=== PATIENT | female | born 1995 | race Caucasian/White ===

== ENCOUNTER 2018-06-03 10:20 | Emergency (ER) | payer MEDICAID ==
--- NOTE | 2018-06-03 11:02 | EDM.PDOC ---
ED HPI GENERAL MEDICAL PROBLEM - General Chief Complaint: ENT Problem Stated Complaint: POSSIBLE STREP Time Seen by Provider: 06/03/18 10:57 Source of Information: Reports: Patient History Limitations: Reports: No Limitations - History of Present Illness INITIAL COMMENTS - FREE TEXT/NARRATIVE: pt has a sore throat. She had a positive strept at [facility] and at [facility] and now she has a sore throat again,. She still has her tonsils. Onset: Other ( started last nite. 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 Exam Limited By: No Limitations General Appearance: Alert, Anxious, Mild Distress Eye Exam: Right Eye: Papilledema Ears: Normal TMs Nose: Normal Inspection Mouth/Throat: Throat Pain, Throat Swelling, Tongue Swelling Head: Atraumatic Neck: Normal Inspection, Lymphadenopathy (R), Lymphadenopathy (L) Respiratory/Chest: No Respiratory Distress Cardiovascular: Regular Rate, Rhythm GI/Abdominal: Soft, Non-Tender Course - Vital Signs Last Recorded V/S: Last Vital Signs Temp 36.5 C 06/03/18 10:43 Pulse 114 H 06/03/18 10:43 Resp 14 06/03/18 10:43 BP 126/80 06/03/18 10:43 Pulse Ox 97 06/03/18 10:43 - Re-Assessments/Exams Free Text/Narrative Re-Assessment/Exam: 06/03/18 11:17 pt has a positive strept Departure - Departure Time of Disposition: 11:18 Disposition: Home, Self-Care 01 Condition: Fair Clinical Impression: Strep pharyngitis - Discharge Information Referrals: Koki Hammond PA [Primary Care Provider] - Forms: ED Department Discharge Care Plan Goals: push fluids, tylenol and motrin for fever and body aches, amoxicillin 500mg tid for 10 days, Ent referal 3 positive strepts in 4 mon.
== END 2018-06-03 11:29 | disposition home or self-care (01) ==
LOC: JP.ED 10:20
DX: J02.0 Streptococcal pharyngitis (principal); Z88.8 Allergy status to other drugs, medicaments and biological substances
CPT/HCPCS: 87430; 99283

== ENCOUNTER 2019-04-11 19:38 | Emergency (ER) | payer MEDICAID ==
--- NOTE | 2019-04-11 21:10 | EDM.PDOC ---
ED HPI GENERAL MEDICAL PROBLEM - General Chief Complaint: Gastrointestinal Problem Stated Complaint: LOWER ABD PAIN Time Seen by Provider: 04/11/19 20:30 Source of Information: Reports: Patient, Family History Limitations: Reports: No Limitations - History of Present Illness INITIAL COMMENTS - FREE TEXT/NARRATIVE: 23-year-old female concerned about worsening constipation and rectal pressure over the past 2 to 3 days. She has tried suppositories, mag citrate and just feels like she cannot have a BM. She is having perirectal and lower pelvic pain when attempting to have a bowel movement. No fevers or chills, no nausea or vomiting. She is only complaining of pain while she is attempting a bowel movement. Onset: Gradual Duration: Day(s): (2 to 3 days) Location: Reports: Abdomen (Lower abdomen, pelvis) Worsens with: Reports: Other (Attempting a bowel movement) Associated Symptoms: Reports: Other (Mild nausea, no other symptoms) Treatments CLINICAL NURSE SPECIALIST: Reports: Other Medication(s) Other Treatments CLINICAL NURSE SPECIALIST: laxatives, suppositories, mag citrate Lower Abdomen Pain Score (Numeric/FACES): 8 - Related Data Allergies Allergy/AdvReac Type Severity Reaction Status Date / Time cefixime [From Suprax] Allergy Rash Verified 04/02/14 07:39 Home Meds: Home Meds Sertraline HCl 50 mg PO DAILY 10/14/17 [History] Norgestimate-Ethinyl Estradiol [Sprintec 28 Day Tablet] 1 tab PO DAILY 04/11/19 [History] Past Medical History HEENT History: Reports: Impaired Vision Gastrointestinal History: Reports: Chronic Constipation COMMIS CHEF History: Reports: Musculoskeletal History: Reports: Fracture Other Musculoskeletal History: R femur fx, right hand fx, right toe fx. Psychiatric History: Reports: Anxiety, Depression Hematologic History: Reports: Anemia Dermatologic History: Reports: Eczema - Past Surgical History Female Surgical History: Reports: LEEP Social & Family History - Tobacco Use Smoking Status *Q: Current Every Day Smoker Years of Tobacco use: 10 Packs/Tins Daily: 0.2 - Caffeine Use Caffeine Use: Reports: Coffee, Soda Caffeine Use Comment: daily coffee, occasional soda - Alcohol Use Days Per Week of Alcohol Use: 7 Number of Drinks Per Day: 3 Total Drinks Per Week: 21 - Recreational Drug Use Recreational Drug Use: No ED ROS GENERAL - Review of Systems Review Of Systems: See Below Constitutional: Denies: Fever, Chills HEENT: Reports: No Symptoms Respiratory: Denies: Shortness of Breath Cardiovascular: Denies: Chest Pain GI/Abdominal: Reports: Abdominal Pain, Constipation, Nausea. Denies: Diarrhea, Vomiting : Reports: No Symptoms Skin: Reports: No Symptoms Neurological: Reports: No Symptoms ED EXAM, GI/ABD - Physical Exam Exam: See Below Exam Limited By: No Limitations General Appearance: Alert, No Apparent Distress Eyes: Bilateral: Normal Appearance (No jaundice) Respiratory/Chest: No Respiratory Distress GI/Abdominal Exam: Soft, Tender (She does react with tenderness to palpation in the right lower quadrant and suprapubic area) Rectal (Female) Exam: Tenderness (Patient is very sensitive to a digital exam, there is significant pain especially with an attempted de-compaction. Stool is firm but high) Neurological: Alert, Oriented Psychiatric: Normal Affect, Normal Mood Skin Exam: Warm, Dry Course - Vital Signs Last Recorded V/S: Last Vital Signs Temp 98.5 F 04/11/19 20:04 Pulse 85 04/11/19 20:04 Resp 16 04/11/19 20:04 BP 131/61 04/11/19 20:04 Pulse Ox 95 04/11/19 20:04 - Orders/Labs/Meds Labs: Laboratory Tests 04/11/19 04/11/19 04/11/19 Range/Units 21:57 22:00 22:56 WBC 9.7 (4.5-11.0) K/uL RBC 4.59 (3.30-5.50) M/uL Hgb 13.8 (12.0-15.0) g/dL Hct 40.4 (36.0-48.0) % MCV 88 (80-98) fL MCH 30 (27-31) pg MCHC 34 (32-36) % Plt Count 229 (150-400) K/uL Neut % (Auto) 73 H (36-66) % Lymph % (Auto) 21 L (24-44) % [place] % (Auto) 5 (2-6) % Eos % (Auto) 1 L (2-4) % Baso % (Auto) 0 (0-1) % Sodium 138 L (140-148) mmol/L Potassium 3.4 L (3.6-5.2) mmol/L Chloride 103 (100-108) mmol/L Carbon Dioxide 25 (21-32) mmol/L Anion Gap 13.4 (5.0-14.0) mmol/L BUN 7 (7-18) mg/dL Creatinine 0.6 (0.6-1.0) mg/dL Est Cr Clr Drug Dosing 118.57 mL/min Estimated GFR (MDRD) > 60 (>60) Glucose 99 (74-106) mg/dL Calcium 8.8 (8.5-10.1) mg/dL Total Bilirubin 0.4 (0.2-1.0) mg/dL AST 13 L (15-37) U/L ALT 22 (12-78) U/L Alkaline Phosphatase 60 (46-116) U/L Total Protein 7.5 (6.4-8.2) g/dL Albumin 4.1 (3.4-5.0) g/dL Globulin 3.4 (2.3-3.5) g/dL Albumin/Globulin Ratio 1.2 (1.2-2.2) Urine Color Yellow (YELLOW) Urine Appearance Cloudy A (CLEAR) Urine pH 7.5 (5.0-8.0) Ur Specific [place] 1.020 (1.008-1.030) Urine Protein Negative (NEGATIVE) mg/dL Urine Glucose (UA) Negative (NEGATIVE) mg/dL Urine Ketones 15 H (NEGATIVE) mg/dL Urine Occult Blood Negative (NEGATIVE) Urine Nitrite Negative (NEGATIVE) Urine Bilirubin Negative (NEGATIVE) Urine Urobilinogen 0.2 (0.2-1.0) EU/dL Ur Leukocyte Esterase Negative (NEGATIVE) Urine RBC 0-5 (0-5) Urine WBC 0-5 (0-5) Ur Epithelial Cells Rare Amorphous Sediment Moderate Urine Bacteria Few Urine Mucus Not seen Urine HCG, Qual 04/11/19 Range/Units 22:56 WBC (4.5-11.0) K/uL RBC (3.30-5.50) M/uL Hgb (12.0-15.0) g/dL Hct (36.0-48.0) % MCV (80-98) fL MCH (27-31) pg MCHC (32-36) % Plt Count (150-400) K/uL Neut % (Auto) (36-66) % Lymph % (Auto) (24-44) % [place] % (Auto) (2-6) % Eos % (Auto) (2-4) % Baso % (Auto) (0-1) % Sodium (140-148) mmol/L Potassium (3.6-5.2) mmol/L Chloride (100-108) mmol/L Carbon Dioxide (21-32) mmol/L Anion Gap (5.0-14.0) mmol/L BUN (7-18) mg/dL Creatinine (0.6-1.0) mg/dL Est Cr Clr Drug Dosing mL/min Estimated GFR (MDRD) (>60) Glucose (74-106) mg/dL Calcium (8.5-10.1) mg/dL Total Bilirubin (0.2-1.0) mg/dL AST (15-37) U/L ALT (12-78) U/L Alkaline Phosphatase (46-116) U/L Total Protein (6.4-8.2) g/dL Albumin (3.4-5.0) g/dL Globulin (2.3-3.5) g/dL Albumin/Globulin Ratio (1.2-2.2) Urine Color (YELLOW) Urine Appearance (CLEAR) Urine pH (5.0-8.0) Ur Specific [place] (1.008-1.030) Urine Protein (NEGATIVE) mg/dL Urine Glucose (UA) (NEGATIVE) mg/dL Urine Ketones (NEGATIVE) mg/dL Urine Occult Blood (NEGATIVE) Urine Nitrite (NEGATIVE) Urine Bilirubin (NEGATIVE) Urine Urobilinogen (0.2-1.0) EU/dL Ur Leukocyte Esterase (NEGATIVE) Urine RBC (0-5) Urine WBC (0-5) Ur Epithelial Cells Amorphous Sediment Urine Bacteria Urine Mucus Urine HCG, Qual Negative Meds: Medications Discontinued Medications Generic Name Dose Route Start Last Admin Trade Name Freq PRN Reason Stop Dose Admin Hydromorphone HCl 0.5 mg 04/11/19 21:57 04/11/19 22:23 Dilaudid IVPUSH 04/11/19 21:58 0.5 mg ONETIME ONE Administration Sodium Chloride 1,000 mls @ 500 mls/hr 04/11/19 22:15 04/11/19 22:22 Normal Saline IV 500 mls/hr ASDIRECTED ZAMZAM Administration Sodium Chloride 71 mls @ 3.1 mls/sec 04/11/19 23:16 04/11/19 23:28 Normal Saline IV 04/11/19 23:17 3.1 mls/sec ASDIRECTED STA Administration Iopamidol 100 ml 04/11/19 23:16 04/11/19 23:28 Isovue-300 (61%) IV 04/11/19 23:17 100 ml . DIRECTED STA Administration Lidocaine HCl 15 ml 04/12/19 00:17 04/12/19 00:23 Xylocaine 2% Viscous PO 04/12/19 00:18 15 ml ONETIME ONE Administration - Re-Assessments/Exams Free Text/Narrative Re-Assessment/Exam: 04/11/19 22:00 2 successive enemas were attempted she had no significant bowel movement and developed fairly intense pain with each effort. After the second enema, she had increased lower abdominal pain while retaining the enema. At that point it became suspicious there was some other inflammatory or physical process causing pain so an IV was started, she was given 0.5 mg of IV Dilaudid, CBC CMP, UA and urine were obtained with the intention of a CT scan of the abdomen if is negative. 04/11/19 23:50 All labs are normal, CT of the abdomen and pelvis with IV contrast was ordered. 04/12/19 00:18 CT showed moderate colonic stool, otherwise negative. Patient was discharged with viscous lidocaine to use for topical numbing and encouraged to use MiraLAX and water along with fiber. She will return if worsening. Departure - Departure Time of Disposition: 00:30 Disposition: Home, Self-Care 01 Clinical Impression: Rectum pain Constipation Qualifiers: Constipation type: other constipation type Qualified Code(s): K59.09 - Other constipation - Discharge Information Instructions: Constipation, Adult Referrals: Koki Hammond PA [Primary Care Provider] - Forms: ED Department Discharge Care Plan Goals: Drink lots of water, use MiraLAX or other fiber in your diet, and use topical numbing medicine if needed with your next bowel movement. Return in the next 2 to 3 days if worsening such as fever, increased abdominal pain or other concerns. Sepsis Event Note - Evaluation Sepsis Screening Result: No Definite Risk - Focused Exam Vital Signs: Vital Signs Temp Pulse Resp BP Pulse Ox 04/11/19 20:04 98.5 F 85 16 131/61 95 04/11/19 20:02 98.5 F 85 16 131/61 95 Date Exam was Performed: 04/12/19 Time Exam was Performed: 00:40
[2019-04-11] MEDS ORDERED: HYDROmorphone 0.5 MG/0.5 ML Syringe IVPUSH ONE (21:57)
[2019-04-11] MEDS ORDERED: Sodium Chloride 0.9% 1,000 ML IV SCH (22:15)
[2019-04-11] MEDS ORDERED: Sodium Chloride 0.9% 71 ML IV STA (23:16)
[2019-04-11] MEDS ORDERED: Iopamidol 612 MG/ML 100 ML Bottle IV STA (23:16)
--- NOTE | 2019-04-12 00:09 | CRLCT ---
INDICATION: Lower abdominal pain TECHNIQUE: CT abdomen and pelvis acquired with 100 cc Isovue-300 intravenous contrast. COMPARISON: None. FINDINGS: Lower chest: Unremarkable. Liver: Unremarkable. Normal in size and attenuation. No masses. Gallbladder and bile ducts: Unremarkable. No stones or inflammation. No biliary dilatation. Pancreas: Unremarkable. No mass or inflammation. Spleen: Unremarkable. Normal in size. No masses. Adrenal glands: Unremarkable. No nodules. Kidneys: Unremarkable. No masses, stones, or hydronephrosis. GI tract: The stomach is unremarkable. No dilated loops of large or small intestine. Moderate amount of stool within the colon. Appendix unremarkable. Vasculature: Unremarkable. Pelvis: Unremarkable. Bones: Unremarkable for age. IMPRESSION: Unremarkable abdomen and pelvis CT. No dilated bowel or focal inflammation. Please note that all CT scans at this facility use dose modulation, iterative reconstruction, and/or weight-based dosing when appropriate to reduce radiation dose to as low as reasonably achievable. Dictated by Jose Alfredo Rizvi MD @ Apr 12 2019 12:00AM Signed by Dr. Jose Alfredo Rizvi @ Apr 12 2019 12:06AM
[2019-04-12] MEDS ORDERED: Lidocaine 2% Viscous Solution 15 ML Cup PO ONE (00:17)
[2019-04-12] MEDS ORDERED: Sodium Phosphate,Monobasic/Sodium Phosphate,Dibasic Enema 133 ML Bottle RECTAL ONE ×2 (00:41)
== END 2019-04-12 00:30 | disposition home or self-care (01) ==
LOC: JP.ED 19:38
DX: K59.09 Other constipation (principal); K62.89 Other specified diseases of anus and rectum; F17.210 Nicotine dependence, cigarettes, uncomplicated; F41.9 Anxiety disorder, unspecified; F32.9 Major depressive disorder, single episode, unspecified; Z79.899 Other long term (current) drug therapy; Z88.1 Allergy status to other antibiotic agents
CPT/HCPCS: 36415; 74177; 80053; 81001; 81025; 85025; 96361; 96374; 99284; A9270; J1170; J7030; J7050; Q9967

== ENCOUNTER 2022-11-02 22:16 | Emergency (ER) | payer MEDICAID | END 2022-11-02 23:20 | disposition home or self-care (01) | LOC: JP.ED 22:16 | DX: R11.2 Nausea with vomiting, unspecified (principal); Z88.1 Allergy status to other antibiotic agents; Z72.0 Tobacco use | CPT/HCPCS: 99283; 99284 ==